=== PATIENT | female | born 1985 | race Caucasian/White ===

== ENCOUNTER → 2018-05-01 | Outpatient (CLI) | payer OTHER ==
[2018-05-03 14:10] LABS: TISSUE TRANSGLUTAMINASE IgA <2 U/mL (0-3)
== END ==
LOC: M LAB 15:19
DX: K58.2 Mixed irritable bowel syndrome (principal)
CPT/HCPCS: 82784

== ENCOUNTER → 2018-05-23 | Outpatient (CLI) | payer OTHER ==
[~2018-05-23] MED LIST: GASTROGRAFIN SOLUTION 30ML (Q9963) As Ordered; ISOVUE-370 76% 100ML VIAL (Q9967) As Ordered
== END ==
LOC: M RAD 08:52
DX: K62.5 Hemorrhage of anus and rectum (principal)
CPT/HCPCS: Q9963

== ENCOUNTER 2018-06-13 10:55 | Day surgery (SDC) | payer OTHER ==
[2018-06-13] MEDS: NS 1,000 ML IV (11:39)
[2018-06-13] MEDS ORDERED: fentaNYL 100 MCG/2 ML INJECTION (J3010) As Ordered (12:36)
[2018-06-13] MEDS ORDERED: LIDOCAINE 2% INJ 100 MG/5 ML SDV (FOR ANES.) As Ordered ×2 (12:40→13:07)
[2018-06-13] MEDS ORDERED: PROPOFOL 200 MG/20 ML VIAL As Ordered ×2 (12:40)
[2018-06-13] MEDS ORDERED: PHENYLephrine HCL 500 MCG/5 ML (100MCG/ML) SYRINGE (J2370) As Ordered (12:58)
== END 2018-06-13 13:45 | disposition home or self-care (01) ==
LOC: M OPP 10:55
DX: R10.84 Generalized abdominal pain (principal); R19.4 Change in bowel habit; Q43.8 Other specified congenital malformations of intestine; R19.7 Diarrhea, unspecified; K59.00 Constipation, unspecified; Z91.018 Allergy to other foods; Z80.3 Family history of malignant neoplasm of breast; Z80.42 Family history of malignant neoplasm of prostate
CPT/HCPCS: 45378

== ENCOUNTER 2020-01-01 19:07 | Outpatient (CLI) | payer OTHER ==
[~2020-01-01] VITALS: Ht 165.1 cm; Wt 82.1 kg
[~2020-01-01 19:07] MED LIST changes: -GASTROGRAFIN SOLUTION 30ML (Q9963) As Ordered; -ISOVUE-370 76% 100ML VIAL (Q9967) As Ordered; +PREN1TAB26 PO
[2020-01-01 19:30] VITALS: BP 123/73
--- NOTE | 2020-01-01 20:17 | IPNPDOC ---
Text Note Date of Service The patient was seen on 01/01/20. NOTE Patient is 34yo G 3 P2 at 32wks. C/o VB x1. No contractions. No loss of fluid. Good movement. Had it after x1 diarhea. No issues or issues with placenta. x2 NSVDs previously. PE: VS WNL GEN NAD, Comfortable SSE: Dried blood at cervix. Closed. ABD: Nontender FHT: Category 1, 130s, reactive, no decels. No contractions. Bedside US: Vtx, Gossly normal NATASHA, + movement and breathing, anterior fundal placental without abruption or clot A/P: Fetus reassuring. Patient not in labor and no rupture of membranes and no evidence of infection. Patient given labor precautions, rupture of membranes precautions and kick counts. She has a follow up appt on 01/19/2020. She is to hydrate and undergo pelvic rest x2wks. Indira Morejon MD Jan 01, 2020 20:17
== END 2020-01-01 20:00 | disposition home or self-care (01) ==
LOC: M LDO 19:07
PROVIDERS: ATTEND Obstetrics & Gynecology
DX: O26.853 Spotting complicating pregnancy, third trimester (principal); Z3A.32 32 weeks gestation of pregnancy
CPT/HCPCS: 59025; 76815; G0378; G0463

== ENCOUNTER 2020-02-11 19:57 | Inpatient (IN) | payer OTHER ==
[~2020-02-11] VITALS: Ht 167.6 cm; Wt 87.6 kg
[2020-02-11 20:16] VITALS: BP 122/72
[2020-02-11] MEDS ORDERED: LR 1,000 ML IV SCH (20:21)
[2020-02-11] MEDS ORDERED: LACTATED RINGER'S 1000 ML IV STA (20:21)
[2020-02-11] MEDS ORDERED: diphenhydrAMINE 50MG CAP PO PRN (20:30)
[2020-02-11] MEDS ORDERED: BUTORPHANOL 2 MG/ML INJ (J0595) IV PRN (20:30)
[2020-02-11] MEDS ORDERED: PROMETHAZINE INJ 25 MG/ML VIAL (J2550) IV ONE (20:30)
[2020-02-11] MEDS: miSOPROStol 50 MCG 1/2 TAB (S0191) PO SCH (20:46)
[2020-02-11 21:04] LABS: HEMATOCRIT 29.4 % (36.0-47.0); HEMOGLOBIN 9.8 g/dl (12.0-15.5); MEAN CORPUSCULAR HEMOGLOBIN 30.5 pg (27.0-33.0); MEAN CORPUSCULAR HGB CONC 33.3 g/dl (32.0-36.5); MEAN CORPUSCULAR VOLUME 91.6 fl (80.0-96.0); PLATELET COUNT, AUTOMATED 292 10^3/uL (150-450); RED BLOOD COUNT 3.21 10^6/uL (4.00-5.40); WHITE BLOOD COUNT 9.4 10^3/uL (4.0-10.0)
[2020-02-11 22:50] VITALS: BP 121/72
--- NOTE | 2020-02-11 23:39 | HPEPDOC ---
Obstetrical History & Physical General Date of Admission February 11, 2020 at 19:57 History of Present Illness Brittny is a 35yo with SIUP 39w3d by lmp c/w 8wk u/s presenting for scheduled induction for favorable cervix. No LOF, no regular ctx, no vaginal bleeding. Good movement. No f/c/n/v/CP/SOB. Chief Complaint: Induction of labor Information Provided By: Patient Care Care: Good Care Dating Final EDC: February 15, 2020 Final EDC by: LMP, 1st trimester (US) Antepartum Course Diagnos(e)s Anemia taking iron/vitamin C, excessive weight gain (53 pounds), history of GHTN with 1st Height (inches): 65.5 Pre- weight (lbs.): 137 Admission Weight (lbs.): 190 Change in Weight (lbs.): 53 Past Medical History Past Obstetrical History : Past Obstetrical History: Multigravida (01/02/14 uncomplicated at 38wk iol for GHTN 6lb6oz, 09/03/2016 uncomplicated at 40wk [id number]) [employer] History: No pertinent history Past Medical History Medical History 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 ABDOMEN: Gravid and non-tender to touch. FETUS: Is vertex (VTX) by sterile vaginal examination (SVE) EXTREMITIES: No edema of BLE Vital Signs/I&O Vital Signs Date Time Temp Pulse Resp B/P (MAP) Pulse Ox O2 Delivery O2 Flow Rate FiO2 02/11/20 22:50 75 121/72 (88) 02/11/20 22:50 97.2 Laboratory Data 24H [facility] Laboratory Tests 2 02/11/20 20:05: Serology Scanned Report Hepatitis B Testing 02/11/20 20:54: Nucleated Red Blood Cells % (auto) 0.0 CBC/BMP Laboratory Tests 02/11/20 20:54 Pertinent Laboratoy Data Blood Type: A+ RBC Antibody Screen: Negative HIV: Negative Hepatitis B: Negative Rapid Plasma Reagin: Nonreactive Rubella: Immune Varicella: Immune Chlamydia/Gonorrhea: Negative Group B Streptococcus: Negative Glucose Tolerance Test: 74 Anatomy Ultrasound Ultrasound Date: Sep 28, 2019 Placenta Location: Anterior Normal Anatomy: Yes Placenta Previa: No Steroid Therapy Steroid Therapy: No Vaginal Examination Dilation: 3 cm Effacement: 70% Station: -3 Cervical Consistency: Soft Cervical Position: Middle Presentation: Cephalic presentation Assessment Heart Rate (FHR): 120 Variability: Moderate Accelerations: Positive Decelerations: None Tocometer Contractions: No Assessment/Plan Assessment Brittny is a 35yo with SIUP 39w3d by lmp c/w 8wk u/s presenting for IOL for favorable cervix at term. SCE /-3, no regular ctx. Cat I FHRT. Vitals wnl, benign exam. Cephalic by SCE. GBS negative. PMhx/ course significant for: Anemia taking iron/vitamin C, excessive weight gain (53 pounds), history of GHTN with 1st Plan Admit and orient. 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 Diet: clear liquids Group B Streptococcus (GBS) negative Labs and intravenous (IV) per unit protocol. Counseled on cytotec, pitocin and induction of labor (IOL). Lactated Ringers (LR): Bolus 1000 mL, then at 125 mL/hr. Anticipate normal spontaneous delivery () Candidate for epidural in active labor, IV stadol/phenergan in latent labor Safe to proceed MD Nancy Sanchez Katrina D MD February 11, 2020 23:39
[2020-02-12] VITALS (14 sets, daily range): BP systolic 97–135; BP diastolic 53–81
[2020-02-12] MEDS: miSOPROStol 50 MCG 1/2 TAB (S0191) PO SCH (00:49)
[2020-02-12] MEDS ORDERED: OXYTOCIN DRIP 30 UNITS in IV 1 EA IV SCH (04:15)
--- NOTE | 2020-02-12 09:18 | IPNPDOC ---
Obstetrical Progress Note Date of Service February 12, 2020 Subjective [place] of care. Received report from Dr. Cruz during board sign out of Brittny, 35yo at 39+4wks, who was admitted last night for elective IOL. She has received 2x doses of cytotec. She reports some cramping, but denies any significant discomfort. She reports +FM, denies LOF/VB. She has been up to shower and ate breakfast. Pitocin has been ordered to start now. Her medical/OB/ history has been reviewed. To note, her H/H upon admission was 9.8/29.4; she is currently asymptomatic. Objective O: VSS, afebrile, normotensive VE: deferred; last exam was 3/70/-3 FHR 140s, moderate variability, + accels, early decels noted CTX by TOCO: q3-4 minutes Laboratory Tests 02/11/20 20:54 Vital Signs Date Time Temp Pulse Resp B/P (MAP) Pulse Ox O2 Delivery O2 Flow Rate FiO2 02/12/20 06:25 97.3 93 106/59 (75) Assessment and Plan Status: Reassuring Group B Streptococcus: Negative Anticipate: Vaginal Delivery Additional Comments A: 35yo at 39+4wks, elective IOL, not in labor. Category I FHT. P: Start pitocin per low dose protocol CEFM x2 Close maternal/ monitoring IV pain medications or epidural available PRN Plan to reassess cervix at next labor check or sooner PRN Anticipate Consult with OB as indicated EDIE JALLOH CNM February 12, 2020 09:18
--- NOTE | 2020-02-13 11:11 | IPN ---
DATE: 02/12/2020 This a 35 old 3, para 2 who was admitted at 39 and 3 weeks of gestation for induction of labor. She had two lots of Misoprostol and started on Pitocin. Initial examination indicated that she was 3 cm, 70% effaced -3 station, soft in mid position. After Misoprostol and after starting Pitocin, re-examination indicates that she has had thick posterior 2 cm, -3 station with a category 1 strip. Presently she has had 8 milliunits of Pitocin and being increase that the appropriate interval as per protocol. She has no significant discomfort. She has not felt many of her contractions and she is not breathing through them. Her blood pressure presently is 106/59, respirations are 18, pulse 93, temperature 97.3. Our plan of care is to increase Pitocin. However if the cervix is thick and 2 cm posterior we are going to have a discussion with the patient regarding use of a Cook catheter to improve the favorability at the cervix. The patient claims what she gets going she definitely goes quickly and has a spontaneous vaginal delivery. She did in the pass too. After risks and benefits of Cook catheter, if the patient agrees, we will placed the catheter and anticipate labor and vaginal delivery.
--- NOTE | 2020-02-14 17:26 | DSES ---
DATE OF ADMISSION: 02/11/2020 DATE OF DISCHARGE: 02/12/2020 This is a 35-year-old 3, para 2, who was admitted at 39 at 3 weeks of gestation for scheduled induction of labor for favorable cervix. No loss of fluid. No regular contractions. No vaginal discharge. No bleeding. Good movement. She was given two lots of misoprostol and started on Pitocin. Did not have any significant change in her cervix, nor did she have any contractions that were of moderate intensity or bothersome despite the fact being here over 12-14 hours. We had discussed using a Cook's catheter in order to enhance her cervical dilatation in conjunction with Pitocin. The patient had questions regarding continuing on with the induction of labor or discontinuing the induction and bringing her in at a more favorable time. She was basically unchanged of her cervix. It was posterior, quite thick, 3 cm, -3 station with no regular contractions, only Pitocin-type contractions, and she did have a category 1 strip. Her vital signs again were 106/59, respirations were 18, pulse 93, temperature 97.3. In fact, she had what we would consider is a positive contraction stress test with moderate variability, normal baseline. No decelerations were noted throughout the entire time she was on the monitor. The patient discussed with her the option of coming home and being rebooked for induction of labor at a more convenient time, and they both agreed that that would be the best plan of care. We discontinued the Pitocin. We will give her 1 hour to see that the contractions marisa. Should they persist, we will continue to keep her. If they marisa, we will send her home. She is to have a category 1 strip before she leaves. She will be also be COVID tested on 02/22/2020 before induction of labor, which is booked at 41 weeks of gestation. She is to call the office on Saturday and schedule a virtual appointment for , as she will be 40 weeks and 3 days. The patient expressed understanding of plan of care. All questions were answered. Half an hour discussion.
== END 2020-02-12 19:10 | disposition home or self-care (01) | DRG 833 ==
LOC: M LDI 19:57
PROVIDERS: ADMIT Obstetrics & Gynecology; ATTEND Obstetrics & Gynecology
PROC: 3E0P7GC Introduction of Other Therapeutic Substance into Female Reproductive, Via Natural or Artificial Opening (ICD-10-PCS; principal; 2020-02-11)
DX: O99.013 Anemia complicating pregnancy, third trimester (principal); Z3A.39 39 weeks gestation of pregnancy; O61.0 Failed medical induction of labor; D64.9 Anemia, unspecified